=== PATIENT | male | born 1995 | race Caucasian/White ===

== ENCOUNTER 2017-04-08 20:51 | Emergency (ER) | payer SELFPAY ==
--- NOTE | ~2017-04-08 | ER ---
PATIENT'S NAME: ROMAN MISTRY [facility] AGE: 21 Y [address] ROOM: [place] [address] LOCATION: [facility] ADMIT DATE: 04/08/2017 ER/Outpatient Report DISCHARGE DATE: 04/08/2017 FAMILY PHYSICIAN: Physician, Unknown ATTENDING PHYSICIAN: Tono Brown Time of Arrival: Time of Evaluation: Admission date and time documented in the medical record. I saw the patient at 2200 hours. CHIEF COMPLAINT: Medical clearance. HISTORY OF PRESENT ILLNESS: The patient is a 21-year-old male who is being arrested by [facility] and taken to [facility]. Apparently around noon, he fell through the ceiling. He was in the attic, fell through the ceiling about 8 foot. No apparent loss of consciousness. Does complain of having some head pain. Denies any neck or spine pain. He has an abrasion to his right pectoral area of the anterior chest. Otherwise, no other chest, abdominal, pelvis, or extremity injuries. No visual or auditory disturbance, lateralizing weakness, numbness, tingling, or loss of function. No recent coughs, colds, flus, fever, chills, or sweats. Does have a headache. No eyes, ears, nose, throat, neck, or spine pain. No other trauma. No lightheadedness, dizziness, syncope, or near syncope. No chest pain, other than the abrasion. No shortness of breath. No abdominal pain, nausea, vomiting, or diarrhea. No incontinence of stool or urine. No joint or muscle swelling, redness, or pain. No skin eruptions or rash. He has an abrasion to the right pectoral area of the anterior chest. Has had a previous head injury with skull fracture. No neurological changes. Questionable psychiatric issues. HOME MEDICATIONS: None. ALLERGIES: PENICILLIN. SOCIAL HISTORY: The patient smokes a pack of cigarettes a day. Nondrinker. SIGNIFICANT PAST MEDICAL HISTORY: 1. Skull fracture. 2. Tobacco abuse. Otherwise, negative. PAST SURGICAL HISTORY: PATIENT'S NAME: ROMAN MISTRY [facility] AGE: 21 Y [address] ROOM: [place] [address] LOCATION: ED ADMIT DATE: 04/08/2017 ER/Outpatient Report DISCHARGE DATE: 04/08/2017 FAMILY PHYSICIAN: Physician, Unknown ATTENDING PHYSICIAN: Tono Brown Operations: Appendectomy. REVIEW OF SYSTEMS: All systems reviewed by me are negative with the exception of those discussed in the History of the Present Illness. PHYSICAL EXAMINATION: VITAL SIGNS: Pulse 98, respirations 14, blood pressure 117/83, and O2 saturation on room air is 97%. HEENT: Head; normocephalic. No abrasion, contusion, laceration, or swelling of the scalp or face. Eyes; extraocular muscles intact. PERRL. Sclerae and conjunctivae clear, nonicteric. Ears, clear TMs bilaterally. Nose; clear. Throat; clear. Mucous membranes moist. Teeth, jaw intact. NECK: No nuchal rigidity. No thyromegaly or cervical lymphadenopathy. No tenderness. Full range of motion. SPINE: Nontender. No deformity. LUNGS: Clear. Good air flow anteriorly and posteriorly. No rales, rhonchi, or wheezes. HEART: Regular. Pulses palpable. The patient has a small abrasion to the right pectoral area of the anterior chest. ABDOMEN: Flat, soft, nondistended, and nontender. Good bowel tones. No organomegaly or abnormal mass palpable. No CVA tenderness. PELVIS: Stable. EXTREMITIES: Moves all 4 extremities. No peripheral edema, cyanosis, or deformity. NEUROLOGIC: Neurovascularly intact. SKIN: Clear. No skin eruptions or rash other than the right pectoral abrasion. IMPRESSION: Medical clearance. PLAN: Medical clearance forms were signed. The patient was discharged from the emergency room department in [facility] custody. Follow up with personal physician as needed. Keep abrasion clean. TONO BROWN MD SDS/modl PATIENT'S NAME: ROMAN MISTRY [facility] AGE: 21 Y [address] ROOM: [place] [address] LOCATION: [facility] ADMIT DATE: 04/08/2017 ER/Outpatient Report DISCHARGE DATE: 04/08/2017 FAMILY PHYSICIAN: Physician, Unknown ATTENDING PHYSICIAN: Tono Brown /[id number] d: 04/09/17 005 t: 04/09/17 182, OUTPATIENT REPORT
== END 2017-04-08 21:12 | disposition disaster alternative care site (69) ==
LOC: GMED 20:51
DX: S20.311A Abrasion of right front wall of thorax, initial encounter (principal); F17.210 Nicotine dependence, cigarettes, uncomplicated; Z88.0 Allergy status to penicillin; W17.89XA Other fall from one level to another, initial encounter